=== PATIENT | female | born 1975 | race African-American/Black ===

== ENCOUNTER 2024-06-12 10:09 | Emergency (ER) | payer MEDICAID ==
[~2024-06-12] VITALS: Ht 170.2 cm; Wt 49.9 kg
[2024-06-12 10:12] VITALS: O2SAT 100
[2024-06-12 11:20] LABS: CHLORIDE 107 mEq/L (98-107); POTASSIUM 3.2 mEq/L (3.5-5.1); SODIUM 140 mEq/L (136-145)
[2024-06-12 11:21] LABS: CALCIUM 9.7 mg/dL (8.7-10.4); CARBON DIOXIDE 23 mEq/L (21-32)
[2024-06-12 11:26] LABS: BASOPHILS % 0.5 % (0.0-2.0); CREATININE 0.5 mg/dL (0.6-1.0); EOSINOPHILS % 0.1 % (0.0-5.0); GLUCOSE 119 mg/dL (70-105); HEMATOCRIT. 35.5 % (36.0-48.0); HEMOGLOBIN. 11.8 g/dL (12.0-16.0); LYMPHOCYTES % 7.3 % (20.0-50.0); MEAN CORPUSCULAR HEMOGLOBIN 27.1 pg (28.0-32.0); MEAN CORPUSCULAR HGB CONC 33.1 g/dL (31.0-37.0); MEAN CORPUSCULAR VOLUME 81.9 fL (81.0-99.0); MEAN PLATELET VOLUME 10.3 fl (7.4-10.4); MONOCYTES % 6.1 % (2.0-8.0); PLATELET 194 x1000/uL (130-400); RED BLOOD CELL COUNT 4.34 mill/uL (4.2-5.4); RED CELL DISTRIBUTION WIDTH 13.7 % (11.6-14.6); UREA NITROGEN BLOOD 9 mg/dL (9-23)
[2024-06-12 11:28] LABS: ALANINE AMINOTRANSFERASE 18 IU/L (10-49); ALBUMIN 4.2 g/dL (3.2-4.8); ASPARTATE AMINOTRANSFERASE 15 IU/L (<34); BILIRUBIN DIRECT 0.2 mg/dL (<=3.0); BILIRUBIN TOTAL 0.6 mg/dL (0.1-1.0); PROTEIN TOTAL 7.3 g/dL (6.0-8.3)
[2024-06-12 11:29] LABS: INR 1.1; PROTHROMBIN TIME 11.6 sec (9.6-11.0)
[2024-06-12] MEDS: POTASSIUM CHLORIDE 20MEQ TABLET SR PO NR ×2 (11:52→12:30)
[2024-06-12] MEDS: MORPHINE SULFATE 4 MG/ML INJ (FOR IV/IM USE) IV ONE (12:59)
[2024-06-12] MEDS: METHYLPREDNISOLONE SOD SUCC 125MG/2ML (ACT-O-VIAL) IV ONE (13:00)
[2024-06-12] MEDS: ONDANSETRON HCL 4MG/2ML INJ IV ONE (13:00)
[2024-06-12 14:35] LABS: CLARITY URINE CLOUDY (CLEAR); COLOR URINE YELLOW (YELLOW); GLUCOSE URINE NEGATIVE (NEGATIVE); KETONES URINE TRACE (NEGATIVE); LEUKOCYTE ESTERASE URINE TRACE (NEGATIVE); NITRITE URINE NEGATIVE (NEGATIVE); OCCULT BLOOD URINE NEGATIVE (NEGATIVE); PH URINE >=9.0 (4.5-8.0); PROTEIN URINE NEGATIVE (NEGATIVE); UROBILINOGEN URINE 0.2 E.U./dL (0.2-1.0)
[2024-06-12 14:54] LABS: BACTERIA URINE 2+; RBC URINE 0-2 /hpf (0-2); SQUAMOUS EPITHELIAL CELL URINE 2+ /lpf (RARE/1+); YEAST URINE NONE SEEN
[2024-06-12 16:20] VITALS: TEMP 36.8
[2024-06-12 18:53] VITALS: BP 131/78; PULSE 108; RESP 17; O2SAT 99
== END 2024-06-12 18:57 | disposition short-term general hospital (02) ==
LOC: ER 10:09 → EDBEDREQ 14:21 → ER 18:57
DX: G35 Multiple sclerosis (principal); E87.6 Hypokalemia; R53.1 Weakness
CPT/HCPCS: 80076; 80048; 81003; 81025; 83690; 85025; 85610; 36415; 71045; 70450; 93005; 96374; 96375; 99285; J2919; J2405; J2270; Z7610